=== PATIENT | male | born 1950 | race Caucasian/White ===

== ENCOUNTER → 2024-05-01 14:37 | Outpatient (REF) | payer MEDICARE, OTHER, SELFPAY | LOC: HWRAD 14:37 | PROVIDERS: ATTENDING PHYSICIAN Internal Medicine Critical Care Medicine; FAMILY PHYSICIAN Internal Medicine | DX: Q34.1 Congenital cyst of mediastinum (principal) | CPT/HCPCS: 71046 ==

== ENCOUNTER → 2024-05-30 13:53 | Outpatient (REF) | payer MEDICARE, OTHER, SELFPAY | LOC: HWRCS 13:53 | PROVIDERS: ATTENDING PHYSICIAN Internal Medicine Cardiovascular Disease; FAMILY PHYSICIAN Internal Medicine | DX: I10 Essential (primary) hypertension (principal); R60.0 Localized edema; Q24.8 Other specified congenital malformations of heart; I25.10 Atherosclerotic heart disease of native coronary artery without angina pectoris; R93.1 Abnormal findings on diagnostic imaging of heart and coronary circulation; Z95.5 Presence of coronary angioplasty implant and graft | CPT/HCPCS: 93306 ==

== ENCOUNTER → 2025-04-19 11:39 | Outpatient (REF) | payer MEDICARE, OTHER, SELFPAY | LOC: REG 11:39 | PROVIDERS: ATTENDING PHYSICIAN Internal Medicine Critical Care Medicine | DX: R06.02 Shortness of breath (principal) | CPT/HCPCS: 71046 ==